=== PATIENT | female | born 2000 | race Two or more races ===

== ENCOUNTER 2023-06-10 17:13 | Inpatient (IN) | payer MEDICAID ==
[~2023-06-10] VITALS: Ht 149.9 cm; Wt 59.9 kg
[2023-06-10] MEDS ORDERED: HYDR-4808 PO (17:24)
[2023-06-10] MEDS ORDERED: MAGNESIUM SULFATE 2 GM/WATER 50 ML IV ONE ×2 (17:45→20:45)
[2023-06-10 18:03] LABS: BASOPHILS % (AUTO) 0.6 % (0.0-2.0); HEMATOCRIT 36.9 % (36-46); HEMOGLOBIN 11.8 g/dL (12.0-16.0); LYMPHOCYTES # (AUTO) 1.8 K/uL (1.0-4.8); LYMPHOCYTES % (AUTO) 26.3 % (22.0-44.0); MEAN CORPUSCULAR HEMOGLOBIN 25.9 pg (26.0-34.0); MEAN CORPUSCULAR HGB CONC 31.9 G/dL (31.0-37.0); MEAN CORPUSCULAR VOLUME 81 fL (80-100); MONOCYTES # (AUTO) 0.4 K/uL (0.1-1.0); MONOCYTES % (AUTO) 6.2 % (2.0-9.0); NEUTROPHILS # (AUTO) 4.6 K/uL (1.8-7.7); NEUTROPHILS % (AUTO) 65.9 % (40.0-70.0); PLATELET COUNT (AUTO) 258 K/uL (150-450); RED BLOOD CELL COUNT(AUTO) 4.55 MIL/uL (4.00-5.20); RED CELL DISTRIBUTION WIDTH 14.3 % (11.5-14.5)
[2023-06-10 18:12] LABS: ANION GAP 15 mmol/L (8-16); CARBON DIOXIDE 24 mmol/L (22-29); CHLORIDE 103 mmol/L (98-107); CREATININE 0.98 mg/dL (0.60-1.30); GLOMERULAR FILTR. RATE CALC > 60 mL/min (>60); GLUCOSE,RANDOM 103 mg/dL (70-110); POTASSIUM 3.3 mmol/L (3.5-5.1); SODIUM SERUM 142 mmol/L (136-145)
[2023-06-10 18:18] LABS: ALANINE AMINOTRANSFERASE 17 U/L (12-78); ALBUMIN 3.9 g/dL (3.4-5.0); ALKALINE PHOSPHATASE 61 U/L (46-116); ASPARTATE AMINOTRANSFERASE 23 U/L (15-37); BILIRUBIN,TOTAL 0.4 mg/dL (0.1-1.0); TOTAL PROTEIN, SERUM 7.8 g/dL (6.4-8.2)
[2023-06-10 18:19] LABS: AMPHET/METH SCREEN,URINE NEGATIVE (NEGATIVE); BARBITURATE SCREEN, URINE NEGATIVE (NEGATIVE); BENZODIAZEPINES SCREEN,URINE NEGATIVE (NEGATIVE); CANNABINOID SCREEN,URINE NEGATIVE (NEGATIVE); COCAINE SCREEN,URINE NEGATIVE (NEGATIVE); METHADONE SCREEN, URINE NEGATIVE (NEGATIVE); OPIATE SCREEN,URINE NEGATIVE (NEGATIVE); PHENCYCLIDINE SCREEN,URINE NEGATIVE (NEGATIVE)
[2023-06-10 18:23] LABS: ACETAMINOPHEN < 2 mcg/mL (10-30)
[2023-06-10 18:46] LABS: SALICYLATE < 0.2 mg/dL (2.8-20.0)
[2023-06-10 21:10] LABS: COVID AG,FIA SOURCE NASOPHARYNGEAL
[2023-06-10] MEDS ORDERED: POTASSIUM CHLORIDE 20 MEQ ER TABLET PO ONE (22:00)
[2023-06-10] MEDS ORDERED: ZOLPIDEM TARTRATE 10 MG TABLET PO PRN (22:30)
[2023-06-10] MEDS ORDERED: LORazepam 2 MG TABLET PO PRN (22:30)
[2023-06-10] MEDS ORDERED: HALOPERIDOL 5 MG TABLET PO PRN (22:30)
[2023-06-11 01:33] VITALS: BP 129/84; PULSE 81; RESP 18; TEMP 98.6; O2SAT 99
[2023-06-11 03:55] VITALS: BP 129/84; PULSE 81; RESP 18; TEMP 98.6
[2023-06-11 04:00] VITALS: TEMP 98.6
[2023-06-11] MEDS ORDERED: HydrOXYzine PAMOATE 50 MG CAPSULE PO PRN (07:45)
[2023-06-11] MEDS ORDERED: GuaiFENesin/D-METHORPHAN [SUGAR-FREE] 200-20MG/10 ML SYRUP UDCUP PO PRN (07:45)
[2023-06-11] MEDS ORDERED: TUBERCULIN, PURIFIED PROTEIN DERIVATIVE 5 TU/0.1 ML SYRINGE ID ONE (07:45)
[2023-06-11] MEDS ORDERED: MAGNESIUM HYDROXIDE SUSPENSION 30 ML UDCUP PO PRN (07:45)
[2023-06-11] MEDS ORDERED: PROMETHAZINE HCL 25 MG TABLET PO PRN (07:45)
[2023-06-11] MEDS ORDERED: ACETAMINOPHEN 325 MG TABLET PO PRN (07:45)
[2023-06-11] MEDS ORDERED: MAG HYDROX/AL HYDROX/SIMETH ES 30 ML SUSPENSION UDCUP PO PRN (07:45)
[2023-06-11] MEDS ORDERED: LOPERAMIDE HCL 2 MG CAPSULE PO PRN (07:45)
[2023-06-11] MEDS ORDERED: QUEtiapine FUMARATE 100 MG TABLET PO PRN (07:45)
[2023-06-11 08:20] VITALS: BP 113/70; PULSE 82; RESP 18; TEMP 97.7; O2SAT 98
[2023-06-11] MEDS: FLUoxetine HCL 20 MG CAPSULE PO SCH (09:00)
[2023-06-11] MEDS: MULTIVITAMINS WITH MINERALS, THERAPEUTIC TABLET PO SCH (09:02)
[2023-06-11] MEDS: OMEGA-3/DHA/EPA/FISH OIL 1,000 MG CAPSULE PO SCH (09:02)
[2023-06-11] MEDS: THIAMINE 100 MG TABLET PO SCH ×2 (09:02→16:36)
[2023-06-11] MEDS: FOLIC ACID 1 MG TABLET PO SCH (09:02)
[2023-06-11] MEDS: NALTREXONE HCL 50 MG TABLET PO SCH (09:02)
[2023-06-11] MEDS: MELATONIN 5 MG TABLET PO SCH (20:33)
[2023-06-11 20:50] VITALS: BP 123/75; PULSE 98; RESP 17; TEMP 98.1; O2SAT 98
[2023-06-12 08:07] VITALS: BP 116/76; PULSE 79; RESP 18; TEMP 97.5; O2SAT 99
[2023-06-12 08:24] LABS: HEMOGLOBIN A1C 5.1 % (3.8-5.6)
[2023-06-12] MEDS: OMEGA-3/DHA/EPA/FISH OIL 1,000 MG CAPSULE PO SCH (08:25)
[2023-06-12] MEDS: MULTIVITAMINS WITH MINERALS, THERAPEUTIC TABLET PO SCH (08:26)
[2023-06-12] MEDS: FLUoxetine HCL 20 MG CAPSULE PO SCH (08:26)
[2023-06-12] MEDS: FOLIC ACID 1 MG TABLET PO SCH (08:26)
[2023-06-12] MEDS: THIAMINE 100 MG TABLET PO SCH ×2 (08:26→16:28)
[2023-06-12] MEDS: NALTREXONE HCL 50 MG TABLET PO SCH (08:26)
[2023-06-12 08:47] LABS: CHOL/HDL RATIO 2.3 (3.9-5.7); FREE T4 (FREE THYROXINE) 1.17 ng/dL (0.76-1.46); THYROID STIMULATING HORMONE 0.86 uIU/mL (0.36-3.74)
[2023-06-12 08:48] LABS: APPEARANCE,URINE CLEAR (CLEAR); BILIRUBIN,URINE NEGATIVE (NEGATIVE); GLUCOSE, URINE (UA) NEGATIVE (NEGATIVE); KETONES,URINE NEGATIVE (NEGATIVE); LEUKOCYTE ESTERASE ,URINE NEGATIVE (NEGATIVE); NITRATE,URINE NEGATIVE (NEGATIVE); OCCULT BLOOD,URINE LARGE (NEGATIVE); PH,URINE 5.5 (5.0-8.0); PROTEIN,URINE TRACE mg/dL (NEGATIVE); SPECIFIC GRAVITIY, URINE 1.018 (1.003-1.030); UROBILINOGEN,URINE <=1.0 mg/dL (<=1.0)
[2023-06-12 09:07] LABS: RBC,URINE 26-50 /HPF (0-2); WBC,URINE 0-2 /HPF (0-5)
[2023-06-12 09:08] LABS: BACTERIA,URINE None Seen /HPF (None Seen); SQUAMOUS EPITHELIAL CELL,UR Rare /LPF (None Seen)
[2023-06-12] MEDS ORDERED: FLUO20CA36 PO (15:58)
[2023-06-12] MEDS ORDERED: MELA5TAB40 PO (15:58)
[2023-06-12] MEDS ORDERED: NALT50TA PO (15:58)
[2023-06-12] MEDS ORDERED: OMEG-135 PO (15:58)
[2023-06-12 20:28] VITALS: BP 138/74; PULSE 85; RESP 17; TEMP 98.5; O2SAT 99
[2023-06-12] MEDS: MELATONIN 5 MG TABLET PO SCH (20:34)
[2023-06-13 08:07] VITALS: BP 111/68; PULSE 65; RESP 18; TEMP 98; O2SAT 99
[2023-06-13] MEDS: NALTREXONE HCL 50 MG TABLET PO SCH (08:38)
[2023-06-13] MEDS: FLUoxetine HCL 20 MG CAPSULE PO SCH (08:38)
[2023-06-13] MEDS: MULTIVITAMINS WITH MINERALS, THERAPEUTIC TABLET PO SCH (08:38)
[2023-06-13] MEDS: THIAMINE 100 MG TABLET PO SCH (08:38)
[2023-06-13] MEDS: OMEGA-3/DHA/EPA/FISH OIL 1,000 MG CAPSULE PO SCH (08:38)
[2023-06-13] MEDS: FOLIC ACID 1 MG TABLET PO SCH (08:42)
[2023-06-13] MEDS ORDERED: POTASSIUM CHLORIDE 20 MEQ ER TABLET PO ONE (08:45)
[2023-06-13] MEDS ORDERED: OMEG-135 PO (11:14)
[2023-06-13] MEDS ORDERED: FLUO20CA36 PO (11:15)
[2023-06-13] MEDS ORDERED: MELA5TAB40 PO (11:15)
[2023-06-13] MEDS ORDERED: NALT50TA6 PO (11:16)
== END 2023-06-13 13:20 | disposition home or self-care (01) | DRG 751 ==
LOC: EMS 17:15 → B2S 06-11 00:01
PROVIDERS: ADMIT Psychiatry & Neurology Psychiatry; ATTEND Psychiatry & Neurology Psychiatry
DX: F33.2 Major depressive disorder, recurrent severe without psychotic features (principal); R45.851 Suicidal ideations; T43.591A Poisoning by other antipsychotics and neuroleptics, accidental (unintentional), initial encounter; Z20.822 Contact with and (suspected) exposure to COVID-19; Y92.89 Other specified places as the place of occurrence of the external cause
CPT/HCPCS: 80053; 80061; 80307; 81001; 83036; 84439; 84443; 84703; 85025; 93005; 99291; G0480; G0481; J3475; Q9967